=== PATIENT | female | born 1970 | race Caucasian/White ===

== ENCOUNTER 2025-03-28 13:32 | Emergency (ER) | payer OTHER ==
[~2025-03-28] VITALS: Ht 160 cm; Wt 64.9 kg
[2025-03-28 13:34] VITALS: TEMP 98
[2025-03-28 14:36] LABS: PLATELET COUNT (AUTO) 139 K/uL (150-450); RED BLOOD CELL COUNT(AUTO) 3.86 MIL/uL (4.0-5.2); RED CELL DISTRIBUTION WIDTH 21.3 % (11.5-15.0); WHITE BLOOD COUNT (AUTO) 5.0 K/uL (4.3-11.0)
[2025-03-28 14:46] LABS: CALCIUM, SERUM 8.9 mg/dL (8.5-10.1); CREATININE 0.8 mg/dL (0.6-1.3); SODIUM SERUM 138 mmol/L (136-145); UREA NITROGEN, BLOOD 11 mg/dL (7-18)
[2025-03-28 14:52] LABS: ASPARTATE AMINOTRANSFERASE 65 U/L (15-37); TOTAL PROTEIN, SERUM 7.3 g/dL (6.4-8.2)
[2025-03-28 14:56] LABS: PREGNANCY TEST SERUM QUAN 2 mIU/mL (0-6)
[2025-03-28 15:00] LABS: ALCOHOL, BLOOD < 3 mg/dL (0-10)
[2025-03-28 15:20] LABS: CREATINE KINASE, TOTAL 272 U/L (26-192)
[2025-03-28 15:21] LABS: SERUM AMMONIA 93 umol/L (11-32)
[2025-03-28] MEDS ORDERED: LACT10SO29 PO (15:33)
[2025-03-28 16:07] VITALS: BP 147/93; O2SAT 96
== END 2025-03-28 16:08 | disposition home or self-care (01) ==
LOC: ER 13:46
DX: E72.20 Disorder of urea cycle metabolism, unspecified (principal); K76.82 Hepatic encephalopathy; Z79.899 Other long term (current) drug therapy
CPT/HCPCS: 36415; 70450-TC; 71045-TC; 80048-TC; 80076-TC; 82140-TC; 82550-TC; 82553; 83735-TC; 84443-TC; 84484-TC; 84702-TC; 85025-TC; G0480

== ENCOUNTER 2025-04-13 12:46 | Inpatient (IN) | payer OTHER ==
[~2025-04-13] VITALS: Ht 157.5 cm; Wt 73.5 kg
[~2025-04-13 12:46] MED LIST: LACT10SO29 PO
[2025-04-13] MEDS ORDERED: LACTULOSE 10 G/15 ML UDC (PYXIS) ONE (13:13)
[2025-04-13 13:36] LABS: PREGNANCY TEST URINE QUAL NEGATIVE (NEGATIVE)
[2025-04-13 13:37] LABS: ADD URINE CULTURE YES; APPEARANCE,URINE CLEAR (CLEAR); BLOOD, URINE Negative Ery/uL (NEGATIVE); LEUKOCYTE ESTERASE ,URINE Moderate (NEGATIVE); NITRITE, URINE NEGATIVE (NEGATIVE); SQUAMOUS EPITHELIAL CELL,UR Rare /HPF (None Seen); UGLUCOSE 100 MG/DL mg/dL (NEGATIVE)
[2025-04-13 13:43] LABS: AMPHETAMINE, URINE NEGATIVE (NEGATIVE); BARBITURATE, URINE NEGATIVE (NEGATIVE); BENZODIAZEPINE, URINE POSITIVE (NEGATIVE); CANNABINOID, URINE NEGATIVE (NEGATIVE); COCCAINE, URINE NEGATIVE (NEGATIVE); OPIATE, URINE NEGATIVE (NEGATIVE)
[2025-04-13] MEDS: IV NS 0.9% 1,000 ML BAG IV ONE (13:51)
[2025-04-13] MEDS: LACTULOSE 10 G/15 ML UDC (PYXIS) PO ONE (13:51)
[2025-04-13 14:00] LABS: PLATELET COUNT (AUTO) 110 K/uL (150-450); RED BLOOD CELL COUNT(AUTO) 3.59 MIL/uL (4.0-5.2); RED CELL DISTRIBUTION WIDTH 18.9 % (11.5-15.0); WHITE BLOOD COUNT (AUTO) 4.5 K/uL (4.3-11.0)
[2025-04-13 14:10] LABS: CALCIUM, SERUM 8.8 mg/dL (8.5-10.1); CREATININE 0.7 mg/dL (0.6-1.3); SERUM AMMONIA 67 umol/L (11-32); SODIUM SERUM 142 mmol/L (136-145); UREA NITROGEN, BLOOD 15 mg/dL (7-18)
[2025-04-13 14:12] LABS: INR 1.24 (0.91-1.10)
[2025-04-13 14:15] LABS: ASPARTATE AMINOTRANSFERASE 47 U/L (15-37); TOTAL PROTEIN, SERUM 6.5 g/dL (6.4-8.2)
[2025-04-13 14:16] LABS: ALCOHOL, BLOOD < 3 mg/dL (0-10)
[2025-04-13] MEDS ORDERED: ONDANSETRON HCL/PF 4 MG/2 ML VIAL IVP PRN (15:00)
[2025-04-13] MEDS ORDERED: MAGNESIUM HYDROXIDE 30 ML UDC PO PRN (15:00)
[2025-04-13] MEDS ORDERED: Z GUARD REMEDY 4 OZ OINT TP PRN (15:00)
[2025-04-13] MEDS ORDERED: MAG HYDROX/AL HYDROX/SIMETH 30 ML UDC PO PRN (15:00)
[2025-04-13] MEDS ORDERED: CEFTRIAXONE 1GM BAG (ER ONLY) 50 ML IV ONE (15:37)
[2025-04-13] MEDS: CEFTRIAXONE 1 G in IV D5W 50 ML IV SCH (15:39)
[2025-04-13] MEDS ORDERED: THIAMINE HCL 100 MG TABLET ONE (16:49)
[2025-04-13] MEDS ORDERED: FOLIC ACID 1 MG TABLET ONE (16:49)
[2025-04-13] MEDS: THIAMINE HCL 100 MG TABLET PO SCH (16:53)
[2025-04-13] MEDS: FOLIC ACID 1 MG TABLET PO SCH (16:53)
[2025-04-13] MEDS: LACTULOSE 10 G/15 ML UDC (PYXIS) PO SCH (18:36)
[2025-04-13] MEDS: RIFAXIMIN 550 MG TABLET PO SCH (18:36)
[2025-04-13 21:01] VITALS: BP 129/82; TEMP 97.7; O2SAT 97
[2025-04-13] MEDS: IV NS 0.9% 1,000 ML IV PRN (21:53)
[2025-04-14] MEDS: ACETAMINOPHEN 325 MG TABLET PO PRN (04:34)
[2025-04-14 05:16] VITALS: BP 100/69; TEMP 98.2; O2SAT 99
[2025-04-14] MEDS: PANTOPRAZOLE 40 MG TABLET.DR PO SCH (06:31)
[2025-04-14 07:22] LABS: PLATELET COUNT (AUTO) 111 K/uL (150-450); RED BLOOD CELL COUNT(AUTO) 3.41 MIL/uL (4.0-5.2); RED CELL DISTRIBUTION WIDTH 18.5 % (11.5-15.0); WHITE BLOOD COUNT (AUTO) 4.3 K/uL (4.3-11.0)
[2025-04-14 07:40] LABS: CALCIUM, SERUM 8.8 mg/dL (8.5-10.1); CREATININE 0.6 mg/dL (0.6-1.3); PHOSPHORUS 3.6 mg/dL (2.5-4.9); SODIUM SERUM 146.0 mmol/L (136-145); UREA NITROGEN, BLOOD 7.0 mg/dL (7-18)
[2025-04-14 08:00] VITALS: BP 120/70; TEMP 98.4; O2SAT 95
[2025-04-14] MEDS: MAGNESIUM OXIDE 400 MG TABLET PO SCH (11:34)
[2025-04-14] MEDS ORDERED: GABA300C PO (15:13)
[2025-04-14] MEDS ORDERED: IBUP-2715 PO (15:13)
[2025-04-14] MEDS ORDERED: DULO20CA19 PO (15:13)
[2025-04-14] MEDS ORDERED: CARV12.52 PO (15:13)
[2025-04-14] MEDS ORDERED: TRAZ-182 PO (15:13)
[2025-04-14] MEDS ORDERED: PANT40TA2 PO (15:13)
[2025-04-14] MEDS ORDERED: HYDR-500 PO (15:13)
[2025-04-14 19:29] VITALS: BP 138/80; TEMP 98.4; O2SAT 97
[2025-04-14 20:00] VITALS: BP 130/70; TEMP 98.1; O2SAT 94
[2025-04-15 06:38] LABS: CALCIUM, SERUM 8.8 mg/dL (8.5-10.1); CREATININE 0.7 mg/dL (0.6-1.3); PHOSPHORUS 4.2 mg/dL (2.5-4.9); SODIUM SERUM 145.0 mmol/L (136-145); UREA NITROGEN, BLOOD 5.0 mg/dL (7-18)
[2025-04-15 08:32] VITALS: BP 149/80; TEMP 98.1; O2SAT 94
[2025-04-15] MEDS ORDERED: Magnesium 1GM/D5W 100ML PREMIX 100 ML IV SCH (11:30)
[2025-04-15] MEDS: MAGNESIUM OXIDE 400 MG TABLET PO SCH (11:45)
== END 2025-04-15 18:26 | disposition home or self-care (01) | DRG 442 ==
LOC: ER 12:50 → TELE 17:35 → MED 23:59
DX: K76.82 Hepatic encephalopathy (principal); N39.0 Urinary tract infection, site not specified; K74.60 Unspecified cirrhosis of liver; D64.9 Anemia, unspecified; D69.6 Thrombocytopenia, unspecified; F10.10 Alcohol abuse, uncomplicated; B96.89 Other specified bacterial agents as the cause of diseases classified elsewhere
CPT/HCPCS: 36415; 71045-TC; 80048-TC; 80076-TC; 81001; 82140-TC; 82962-TC; 83735-TC; 84100-TC; 84443-TC; 84484-TC; 84703-TC; 85025-TC; 85730-TC; 87081-TC; 87086-TC; A4223; G0378; G0480; J0696; J7030; J7060